=== PATIENT | male | born 1945 | race Caucasian/White ===

== ENCOUNTER → 2016-05-12 | Outpatient (CLI) | payer OTHER ==
--- NOTE | 2016-05-12 10:30 | US ---
Ultrasound Venous Duplex Doppler - Bilateral Legs 0951 hours History: Pain and swelling. Findings: Ultrasound venous Duplex and Doppler imaging of the bilateral common femoral veins, femo ral veins, popliteal veins, calf veins, and greater saphenous vein origins demonstrates positive smal l volume deep venous thrombosis in the left posterior tibial vein. No extension into the left poplite al or femoral veins. In the right leg, there is positive superficial thrombus in the right greater saphenous vein distally . No evidence of deep venous thrombosis in the right leg. Impression: 1. Positive deep venous thrombosis left posterior tibial vein, small volume. 2. Positive right superficial thrombophlebitis in the distal greater saphenous vein. Findings and recommendations discussed with Dr. Richardson Reynolds' nurse, at 1025 hours today. A test result has been communicated to a licensed care provider and documented in [place], 10:26:54 A M, 05/12/2016, [employer] Message ID [id number].
--- NOTE | 2016-05-12 11:23 | CT ---
CT Scan of the Abdomen and Pelvis (With Contrast) May 12, 2016 Indication: Right lower quadrant pain. Technique: Dilute contrast was given orally prior to scanning. 90 mL of Isovue-370 were given intra venously by machine power injection. Multidetector helical CT imaging was performed from the diaphra gm to the symphysis pubis. Dose reduction techniques were utilized. Findings: No intraabdominal mass, lymphadenopathy, free fluid, or mesenteric edema. The bowel pattern is normal with the exception of mild right-sided constipation. Scattered diverticul a are present throughout the sigmoid colon. No acute diverticulitis or bowel obstruction. No evidence of appendicitis. Tiny umbilical hernia contains only fat. No inguinal hernia. The liver, spleen, pancreas, gallbladder, adrenal glands, and kidneys are normal. A well-circumscribe d 5.5 cm cyst emanates off the superior posterior aspect of the right kidney. No nephrolithiasis or h ydroureteronephrosis. Urinary bladder is normal. Prostate gland is upper normal size. The abdominal aorta is normal caliber with mild calcified plaque. No aneurysm. Lung bases are clear. No compression fracture or bone lesion. A small right hip effusion decompresses into the right iliops oas bursa. Moderate bilateral hip osteoarthritis. Impression: 1. No intraabdominal mass, lymphadenopathy, or acute inflammatory process. 2. Minimal sigmoid diverticulosis and mild right-sided constipation. 3. Tiny umbilical hernia contains only fat.
== END ==
LOC: CIMAGING 09:24
PROVIDERS: ATTEND Surgery
DX: I82.4Z2 Acute embolism and thrombosis of unspecified deep veins of left distal lower extremity (principal); R10.31 Right lower quadrant pain
CPT/HCPCS: 74177-PO; 93970-PO